=== PATIENT | male | born 1950 | race Hispanic/Latino ===

== ENCOUNTER 2020-02-02 10:05 | Emergency (ER) | payer OTHER ==
[2020-02-02] MEDS ORDERED: NITROGLYCERIN 1GM/1 INCH PACKET TD ONE (13:30)
[2020-02-02] MEDS ORDERED: ASPIRIN 325 MG TABLET ONE (13:30)
== END 2020-02-02 18:00 | disposition home or self-care (01) ==
LOC: EDH 10:05
DX: R07.89 Other chest pain (principal); R06.02 Shortness of breath; E11.9 Type 2 diabetes mellitus without complications; E78.5 Hyperlipidemia, unspecified; I10 Essential (primary) hypertension; Z88.3 Allergy status to other anti-infective agents